=== PATIENT | female | born 1935 | race Caucasian/White ===

== ENCOUNTER 2017-12-14 05:24 | Inpatient (IN) | payer OTHER ==
[2017-11-28 12:43] LABS: URINE BILIRUBIN NEGATIVE (Negative); URINE BLOOD NEGATIVE (Negative); URINE CLARITY CLEAR; URINE COLOR YELLOW; URINE GLUCOSE-RANDOM* NEGATIVE (Negative); URINE KETONES NEGATIVE (Negative); URINE LEUKOCYTES-REFLEX NEGATIVE (Negative); URINE NITRITE-REFLEX NEGATIVE (Negative); URINE PROTEIN (DIPSTICK) NEGATIVE (Negative); URINE SPECIFIC GRAVITY <= 1.005 (1.005-1.035); URINE UROBILINOGEN 0.2 E.U./dl (0.2-1.0)
[2017-11-28 12:44] LABS: HEMATOCRIT 37.1 % (37.0-47.0); HEMOGLOBIN 12.9 gm/dL (12.0-15.0); MCH 33.2 pg (26.0-34.0); MCHC 34.6 g/dL (28.0-37.0); RBC 3.87 mil/uL (4.20-5.00); WBC 7.1 thou/uL (4.0-11.0)
[2017-11-28 12:54] LABS: ALBUMIN 4.2 g/dL (3.4-5.0); CALCIUM 9.4 mg/dL (8.5-10.1); CREATININE 0.8 mg/dL (0.6-1.0); POTASSIUM 4.1 mmol/L (3.5-5.1)
[2017-11-28 12:56] LABS: PROTIME 10.4 Seconds (9.3-11.4)
[~2017-12-14] VITALS: Ht 172.7 cm; Wt 73.9 kg
--- NOTE | ~2017-12-14 | O ---
[facility] [place] [address] OPERATIVE REPORT Name: ZAC ANDERSON Darcie Room #: 402-P [facility] IN M.R.#: [id number] Admission: 12/14/17 Attend Phys: Dakota Sanchez MD Discharge: Date of : 39 Report #: [id number] THIS REPORT FOR: //name// CC: Samson Sanchez DATE OF SERVICE: 12/14/2017 PREOPERATIVE DIAGNOSIS: Left knee valgus osteoarthritis. POSTOPERATIVE DIAGNOSIS: Left knee valgus osteoarthritis. PROCEDURE: Left total knee arthroplasty using Navio robotic assistance. SURGEON: Dakota Sanchez M.D. PLANOGRAPH OPERATOR: Marine Alejandro PA-C. INDICATIONS FOR PLANOGRAPH OPERATOR: Throughout the case, extensive retraction and manipulation of the knee was required. This was afforded to me by my salon shampoo assistant. ANESTHESIA: LMA with an adductor canal block. IMPLANTS: Davenport and Nephew size 7 Legion cobalt chrome posterior stabilized femur, a size 5 tibia, size 11 polyethylene and size 38 patella. TOURNIQUET TIME: 74 minutes. ESTIMATED BLOOD LOSS: 25 mL. COMPLICATIONS: None. SPECIMENS: None. CONDITION UPON LEAVING THE OPERATING ROOM: Stable. INDICATION FOR PROCEDURE: The patient is an 82-year-old female who has severe left knee valgus osteoarthritis. She had failed conservative treatment for this and after discussion with her, she elected for left total knee arthroplasty. DESCRIPTION OF PROCEDURE: Risks, benefits, alternatives, complications were discussed in detail with the patient including but not limited to risk of anesthesia, risk of damage to nerves, arteries, blood vessels, risk for infection, bleeding, risk for continued knee pain and need for reoperation. Informed consent was obtained from the patient. Left knee was appropriately marked in the preoperative holding area. Adductor canal block was placed by [facility] [address] [place] [address] OPERATIVE REPORT Name: ZAC ANDERSON Room #: 402-P [facility] IN .R.#: [id number] Admission: 12/14/17 Attend Phys: Dakota Sanchez MD Discharge: Date of : 37 Report #: [id number] anesthesia. IV Ancef was given for preoperative antibiotics. She was brought to the operating room and placed in the supine position on the operating room table. LMA anesthesia was induced without complication. Tourniquet was placed on the left thigh. Left lower extremity was prepped and draped in normal sterile fashion. Timeout was performed properly identifying the patient and procedure as well as the instrumentation and implants. All in the operating room were in agreement. Left lower extremity was exsanguinated, tourniquet was inflated, tourniquet time was 74 minutes. Standard midline approach to the knee was made with 10 blade through the skin. Dissection was taken out sharply to the fascia and deep flaps were developed medially and laterally. Fresh 10 blade was used to make a medial parapatellar arthrotomy and the knee was inspected. There was extensive lateral compartment osteoarthritis with moderate medial and patellofemoral involvement. Osteophytes were removed from the femur and tibia with a rongeur. The ACL and PCL were removed sharply. Reference pins were then placed in the femur and tibia. The knee was then mapped out using the [employer]dio robotic assistance device in standard fashion. The components were sized digitally and found to be a 7 and a 5 for the femur and tibia respectively. The distal femoral cut was then made with the Navio bur and the 4-in-1 cutting block was placed. The anterior, posterior and chamfer cuts were made. The drill holes in the tibial were then placed using the Navio matthew and the tibial resection guide was pinned in place and tibial resection was made. The remainder of the medial and lateral meniscus were removed with Bovie cautery. The tibia was sized, found to be a size 5, a size 5 tibial trial was placed, size 7 tibial trial was placed and size 11 polyethylene was placed. Knee was taken through range of motion and found to have good balance in flexion and extension both medially and laterally to manual testing as well as to computerized testing using the Navio. 9 mm was taken off the posterior surface of the patella and a size 38 patellar button was placed. Knee was taken through range of motion and found to be stable, found to have good balance in flexion and extension with good patellar tracking. Trial components were removed. Bony ends were thoroughly irrigated with normal saline. A final size 5 tibia, size 7 Legion cobalt chrome posterior stabilized femur and a size 38 patella were cemented in place using standard cementation techniques. While the cement cured, a periarticular injection consisting of morphine, ropivacaine, epinephrine and Toradol was placed around the knee joint. After the cement cured, the tourniquet was deflated. Hemostasis was obtained with Bovie cautery. A final size 11 polyethylene was placed. 1 gram of vancomycin was placed deep in the joint. Fascia was closed with 0 Vicryl, skin was closed with 2-0 Vicryl, 3-0 Monocryl and a MICHAEL dressing was applied. The patient tolerated this procedure well and went to the recovery room under care of anesthesia postoperatively. <ELECTRONICALLY SIGNED> By: Dakota Sanchez MD 12/15/17 1004 [id number] Dakota Sanchez MD /nt
[~2017-12-14 05:24] MED LIST: ALENDRONATE SOD70 MG PO; ALLER-TEC D 5-1 EACH PO; AMIODARONE HCL100 MG PO; ASPIR 8181 MG PO; CO Q-10100 M1 PO; DIOVAN 80 MG TA80 M1 PO; FISH OIL 1,001000 M2 PO; GLUCOSAMINE &1 EAC1 PO; LIALDA1.2 GM PO; MOBIC15 MG PO; PACERONE 200 M200 M1 PO; REQUIP 1 MG TABL1 M1 PO; ROPINIROLE HCL2 MG PO; TRAMADOL 50 MG50 MG PO; TRAZODONE HCL50 MG PO; VIVISCAL PO; WOMEN'S DAILY1 EACH PO; [UNRECOGNIZED DRUG - OTHER] PO; [UNRECOGNIZED DRUG - OTHER] PO
[2017-12-14 12:08] VITALS: BP 133/75
[2017-12-14 16:00] VITALS: BP 147/79
[2017-12-14 16:30] VITALS: BP 158/69
[2017-12-14 17:00] VITALS: BP 145/88
[2017-12-14 18:00] VITALS: BP 136/78
[2017-12-14 19:00] VITALS: BP 125/64
[2017-12-15] VITALS: BP 111/69
[2017-12-15 04:00] VITALS: BP 105/63
[2017-12-15 06:56] LABS: HEMATOCRIT 31.1 % (37.0-47.0); HEMOGLOBIN 10.6 gm/dL (12.0-15.0); MCH 33.1 pg (26.0-34.0); MCHC 34.1 g/dL (28.0-37.0); RBC 3.21 mil/uL (4.20-5.00); RDW 12.8 % (10.5-14.5); WBC 6.6 thou/uL (4.0-11.0)
[2017-12-15 07:06] VITALS: BP 100/56
[2017-12-15 16:10] VITALS: BP 120/65
[2017-12-15 19:55] VITALS: BP 126/68
[2017-12-16 05:52] VITALS: BP 99/56
[2017-12-16 06:42] LABS: HEMOGLOBIN 9.9 gm/dL (12.0-15.0); MCH 32.9 pg (26.0-34.0); MCHC 34.1 g/dL (28.0-37.0); MCV 96.3 fL (80.0-100.0); RBC 3.01 mil/uL (4.20-5.00); RDW 13.1 % (10.5-14.5)
[2017-12-16 08:16] VITALS: BP 115/53
[2017-12-16] MEDS ORDERED: TRI-BUFFERED A325 M1 PO (12:40)
[2017-12-16] MEDS ORDERED: NEURONTIN 300300 M1 PO (12:41)
[2017-12-16] MEDS ORDERED: PERCOCET PO (12:41)
[2017-12-16 16:34] VITALS: BP 112/61
[2017-12-16 18:09] VITALS: BP 115/61
[2017-12-16 19:39] VITALS: BP 113/54
[2017-12-17 07:56] VITALS: BP 103/57
[2017-12-17 08:22] LABS: HEMATOCRIT 26.8 % (37.0-47.0); HEMOGLOBIN 9.1 gm/dL (12.0-15.0); MCHC 33.9 g/dL (28.0-37.0); MCV 97.3 fL (80.0-100.0); RBC 2.76 mil/uL (4.20-5.00); RDW 13.2 % (10.5-14.5); WBC 3.9 thou/uL (4.0-11.0)
[2017-12-17 14:47] VITALS: BP 103/57
== END 2017-12-17 15:30 | disposition home or self-care (01) | DRG 470 ==
LOC: TBA 05:24 → 4N 05:24 → PRE 05:40 → OR 10:30 → EDSTATUS 10:30 → PRE 10:32 → 4N 16:02 → SICU 12-16 18:08
PROVIDERS: Orthopaedic Surgery
PROC: 0SRD0J9 Replacement of Left Knee Joint with Synthetic Substitute, Cemented, Open Approach (ICD-10-PCS; principal; 2017-12-14)
DX: M17.12 Unilateral primary osteoarthritis, left knee (principal); I10 Essential (primary) hypertension; Z90.49 Acquired absence of other specified parts of digestive tract; Z90.710 Acquired absence of both cervix and uterus; Z90.721 Acquired absence of ovaries, unilateral; Z82.49 Family history of ischemic heart disease and other diseases of the circulatory system; Z81.1 Family history of alcohol abuse and dependence; Z87.891 Personal history of nicotine dependence
CPT/HCPCS: 10790; 15002; 50010; 50101; 50415; 50954; 51130; 51225; 51771; 53000; 53078; 53364; 54118; 56527; 56528; 57095; 57127; 62110; 62900; 70005

== ENCOUNTER 2018-12-20 05:42 | Inpatient (IN) | payer OTHER ==
[2018-12-11 12:54] LABS: HEMATOCRIT 36.3 % (37.0-47.0); HEMOGLOBIN 12.4 gm/dL (12.0-15.0); MCH 32.8 pg (26.0-34.0); MCHC 34.2 g/dL (28.0-37.0); MCV 95.9 fL (80.0-100.0); RBC 3.78 mil/uL (4.20-5.00); RDW 13.7 % (10.5-14.5); WBC 6.8 thou/uL (4.0-11.0)
[2018-12-11 12:56] LABS: URINE BILIRUBIN NEGATIVE (Negative); URINE BLOOD NEGATIVE (Negative); URINE CLARITY CLEAR; URINE COLOR YELLOW; URINE GLUCOSE-RANDOM* NEGATIVE (Negative); URINE KETONES NEGATIVE (Negative); URINE LEUKOCYTES-REFLEX NEGATIVE (Negative); URINE NITRITE-REFLEX NEGATIVE (Negative); URINE PROTEIN (DIPSTICK) NEGATIVE (Negative); URINE SPECIFIC GRAVITY <= 1.005 (1.005-1.035); URINE UROBILINOGEN 0.2 E.U./dl (0.2-1.0)
[2018-12-11 13:05] LABS: PROTIME 10.1 Seconds (9.3-11.4)
[2018-12-11 13:16] LABS: CREATININE 0.8 mg/dL (0.6-1.0); POTASSIUM 4.4 mmol/L (3.5-5.1)
[~2018-12-20] VITALS: Ht 172.7 cm; Wt 72.6 kg
[~2018-12-20 05:42] MED LIST changes: +APRISO0.375 GM PO; +CALCIUM CITRAT1 EA20 PO; +COZAAR 25 MG TA25 M1 PO; +NEURONTIN 300300 M1 PO; +PERCOCET PO; +TRI-BUFFERED A325 M1 PO; +VITAMIN D32000 UNI1 PO
[2018-12-20 10:59] VITALS: BP 141/78
[2018-12-20 17:15] VITALS: BP 145/73
--- NOTE | 2018-12-20 18:26 | NUR ---
Pt came up to unit approx 1715. Post right total knee replacement. Alert and oriented x4. Dressing clean and intact. Pain controlled. Ice pack in place. SCDs and J CARLOS hose in place. Weight bearing as tolerated. Will give report to jaswant hook.
[2018-12-20 22:05] VITALS: BP 112/67
--- NOTE | 2018-12-21 04:07 | NUR ---
PATIENT ARRIVED ON UNIT FROM . C/O PAIN X1 IN R KNEE. MICHAEL DRESSING ON R KNEE D/I. ICE APPLIED. IV PATENT IN LFA. PASSING FLATUS. HAS VOIDED SEVERAL TIMES SINCE SURGERY. WBAT, BUT REFERS TO WAIT UNTIL PT SEES HER BEFORE GETTING UP. SLEPT MOST OF NIGHT.
[2018-12-21 04:08] VITALS: BP 104/58
[2018-12-21 05:35] LABS: HEMOGLOBIN 10.4 gm/dL (12.0-15.0); MCH 32.6 pg (26.0-34.0); MCHC 33.6 g/dL (28.0-37.0); MCV 96.8 fL (80.0-100.0); RBC 3.2 mil/uL (4.20-5.00); RDW 13.2 % (10.5-14.5); WBC 11.3 thou/uL (4.0-11.0)
--- NOTE | 2018-12-21 07:41 | O ---
[facility] [place] [address] OPERATIVE REPORT Name: ZAC ANDERSON Darcie Room #: 421-P [facility] IN M.R.#: [id number] Admission: 12/20/18 ������������������ Attend Phys: Dakota Sanchez MD Discharge: ������������������ Date of : 39 Report #: [id number] THIS REPORT FOR: //name// CC: Samson Sanchez DATE OF SERVICE: 12/20/2018 PREOPERATIVE DIAGNOSIS: Right knee osteoarthritis. POSTOPERATIVE DIAGNOSIS: Right knee osteoarthritis. PROCEDURE: Right total knee arthroplasty using Navio robotic assistant plant controller. SURGEON: Dakota Sanchez MD. ANESTHESIA: . IMPLANTS: Davenport and Nephew size 7 Legion cobalt chrome posterior stabilized femur, size 5 tibia, size 9 highly constrained polyethylene and size 38 patella. TOURNIQUET TIME: 62 minutes. ESTIMATED BLOOD LOSS: 25 mL. COMPLICATIONS: None. SPECIMENS: None. CONDITION UPON LEAVING THE OPERATING ROOM: Stable. INDICATIONS FOR PROCEDURE: The patient is an 83-year-old female with right knee osteoarthritis. She has failed conservative measures for this and after discussion with her, she elected for right total knee arthroplasty. DESCRIPTION OF PROCEDURE: Risks, benefits, alternatives, complications were discussed in detail with the patient including but not limited to risk of anesthesia, risk of damage to nerves, arteries, blood vessels, risk for infection, bleeding, risk for continued knee pain and need for reoperation. Informed consent was obtained from the patient. The right knee was appropriately marked in the preoperative holding area. IV Ancef was given for preoperative antibiotics. Adductor canal block was placed by Anesthesia. She was brought to the operating room and placed in supine position on operating room table. LMA anesthesia was induced without complication. Tourniquet was placed on the right thigh. Right lower extremity was prepped and draped in normal sterile fashion. Timeout was performed properly identifying the patient [address] [address] OPERATIVE REPORT Name: ZAC ANDERSON Room #: 421-P [facility] IN .R.#: [id number] Admission: 12/20/18 ������������������ Attend Phys: Dakota Sanchez MD Discharge: ������������������ Date of : 39 Report #: [id number] and procedure as well as the instrumentation and implants. All in the operating room were in agreement. Right lower extremity was exsanguinated, tourniquet was inflated. Tourniquet time was 62 minutes. Standard midline approach to the knee was made with 10 blade through the skin. Dissection was taken down sharply to the fascia and deep flaps were developed medially and laterally. Fresh 10 blade was used to make a medial parapatellar arthrotomy and the knee was inspected. There was severe tricompartmental osteoarthritis. ACL and PCL were removed sharply. Reference pins were placed in the femur and the tibia and the knee was digitally mapped using the Votigo robotic system. Intraoperative plan was made and we sized to a size 7 femur and a size 5 tibia and 11 polyethylene. After acceptance and intraoperative plan, the distal femoral cut was made with the Navio matthew, the size 7 cutting block was placed on the femur and the anterior, posterior and chamfer cuts were made. Attention was then turned to the tibia. The remainder of the menisci removed with Bovie cautery. Tibial resection guide was pinned in place using the Navio system for placement of the guide and the tibial resection was made. After this, flexion and extension gaps were checked and found to have good balance in flexion and extension both medially and laterally. The tibia was sized, found to be a size 5. Size 5 tibial trial was placed and the size 7 femoral trial was placed and the box cut was made. This was then trialed with a size 9 polyethylene and then a size 9 highly constrained polyethylene and size 9 highly constrained polyethylene had the best fit. The size 10 was too tight in extension without full extension. After this, 9 mm was taken off the posterior surface of the patella and a size 38 patellar trial button was placed. Knee was taken through range of motion, found to be stable, found to have good patellar tracking. Trial components were removed. Bony ends were thoroughly irrigated with normal saline. A final size 5 tibia, size 7 Legion cobalt chrome posterior stabilized femur and a size 38 patella were cemented in place using standard cementation techniques. While the cement cured, a periarticular injection consisting of morphine, ropivacaine, epinephrine and Toradol was placed around the knee joint capsule. After the cement cured, the tourniquet was deflated. Hemostasis was obtained with Bovie cautery. Final size 9 highly constrained polyethylene was placed. A gram of vancomycin was placed deep in the joint. The fascia was closed with 0 Vicryl, skin was closed with 2-0 Vicryl, 3-0 Monocryl. Dermabond and a MICHAEL dressing was applied. The patient tolerated this procedure well and went to recovery room under care of anesthesia postoperatively. ��������������������������������������������� <ELECTRONICALLY SIGNED> ���������������������������������������� By: Dakota Sanchez MD ��������������������������������������������� 12/21/18 0741 [id number] Dakota Sanchez MD /nt
[2018-12-21 08:22] VITALS: BP 128/67
--- NOTE | 2018-12-21 13:49 | NUR ---
ASSESSMENT-PT LIVES IN AN INDEPENDENT APT AT [facility]. SHE HAS A CANE AND A FWW ALREADY. SHE SAYS SHE EATS ABOUT 1/2 OF HER MEALS IN THE DINING AREA. SHE HAS MANY FRIENDS AND OTHER RESIDENTS AT [facility] THAT HAVE OFFERED TO ASSIST HER NEEDED. SHE HAS BEEN TO REHAB AT [facility] IN THE PAST. SHE HAS AN APT AT [place] ON TUESDAY AT 10AM FOR START OF THERAPY. PT VOICES NO DC NEEDS AT THIS TIME. FOLLOWING TO ASSIST WITH DC REINA.
--- NOTE | 2018-12-21 17:26 | NUR ---
Assumed care of pt at 0700. Pt alert and oriented x4. Pain on right knee controlled with prn pain meds. Dressing clean and intact. Patient worked with PT and did very well. Plan is to d/c tomorrow. SBA with walker and gaitbelt to the restroom. Will continue to monitor.
[2018-12-21 17:57] VITALS: BP 130/64
[2018-12-21 19:40] VITALS: BP 115/65
[2018-12-22 03:30] VITALS: BP 117/54
[2018-12-22 05:30] LABS: HEMATOCRIT 26.5 % (37.0-47.0); HEMOGLOBIN 9.2 gm/dL (12.0-15.0); MCH 33.2 pg (26.0-34.0); MCHC 34.6 g/dL (28.0-37.0); MCV 96.2 fL (80.0-100.0); RBC 2.75 mil/uL (4.20-5.00); RDW 13.7 % (10.5-14.5); WBC 4.1 thou/uL (4.0-11.0)
--- NOTE | 2018-12-22 05:32 | NUR ---
PATIENT ALERT AND ORIENTED X4. UP TO BATHROOM WITH ASSIST OF ONE AND WALKER. C/O PAIN X2. MED GIVEN. MICHAEL DRESSING ON KNEE D/I. SLEPT MOST OF NIGHT.
[2018-12-22 07:25] VITALS: BP 117/60
--- NOTE | 2018-12-22 08:34 | NUR ---
ASSUMED CARE OF PT AT 0700. ASSESSMENT CHARTED. A&O,X4. C/O RIGHT KNEE PAIN, PO PAIN MEDS GIVEN ORDERED. MICHAEL DRESSING INTACT. PULSES INTACT. ROOM AIR. PT UP WALKING WITH WALKER X1 ASSIST. WILL CONTINUE TO MONITOR.
[2018-12-22] MEDS ORDERED: TRI-BUFFERED A325 M1 PO (12:50)
[2018-12-22] MEDS ORDERED: NEURONTIN 300300 M1 PO (12:50)
[2018-12-22 13:25] VITALS: BP 117/60
== END 2018-12-22 16:39 | disposition home or self-care (01) | DRG 470 ==
LOC: TBA 05:42 → 4E 05:42 → PRE 05:59 → 2N 16:57 → 4E 20:25 → ENTRNSPT 12-22 16:24 → 4E 12-22 16:39
PROVIDERS: ADMIT Orthopaedic Surgery
DX: M17.11 Unilateral primary osteoarthritis, right knee (principal); Z79.899 Other long term (current) drug therapy
CPT/HCPCS: 10783; 50010; 50101; 50415; 50954; 51130; 51225; 53000; 53078; 53364; 54118; 56527; 56528; 57095; 57103; 57110; 57127; 57180; 62110; 62900; 64043; 65060; 70005